=== PATIENT | female | born 1990 | race Caucasian/White ===

== ENCOUNTER 2016-10-08 23:35 | Emergency (ER) | payer OTHER | END 2016-10-09 02:58 | disposition home or self-care (01) | LOC: CED 23:35 | DX: J06.9 Acute upper respiratory infection, unspecified (principal); B35.9 Dermatophytosis, unspecified; F17.210 Nicotine dependence, cigarettes, uncomplicated; Z88.8 Allergy status to other drugs, medicaments and biological substances | CPT/HCPCS: 36415; 84703; 99283 ==